=== PATIENT | female | born 1980 | race Caucasian/White ===

== ENCOUNTER 2016-10-07 16:49 | Emergency (ER) | payer OTHER ==
[2016-10-07] MEDS ORDERED: CEPHALEXIN 500 MG CAPSULE ONE (17:49)
[2016-10-07] MEDS ORDERED: SULFAMETHOXAZOLE 800 MG/TRIMETHOPRIM 160 MG TABLET ONE (17:49)
[2016-10-07] MEDS ORDERED: FLUCONAZOLE 150 MG TABLET ONE (17:56)
== END 2016-10-07 18:12 | disposition home or self-care (01) ==
LOC: ED 16:49
DX: L02.415 Cutaneous abscess of right lower limb (principal); E11.9 Type 2 diabetes mellitus without complications; Z79.899 Other long term (current) drug therapy
CPT/HCPCS: 87070; 87186; 87077; 99283 ×2; 10060 ×2; A9270 ×3

== ENCOUNTER 2016-12-05 21:26 | Emergency (ER) | payer OTHER ==
[2016-12-05 22:23] LABS: SPECIFIC GRAVITY 1.015 (1.001-1.030); URINE APPEARANCE SL CLOUDY; URINE BILIRUBIN NEGATIVE (NEGATIVE); URINE BLOOD NEGATIVE (NEGATIVE); URINE COLOR YELLOW; URINE GLUCOSE (UA) 3+ (NEGATIVE); URINE LEUKOCYTE ESTERASE NEGATIVE (NEGATIVE); URINE NITRITE NEGATIVE (NEGATIVE); URINE PROTEIN NEGATIVE (NEGATIVE); URINE UROBILINOGEN NORMAL (0-1 mg/dl)
[2016-12-05 22:28] LABS: HCG,QUALITATIVE URINE NEGATIVE
[2016-12-05 22:41] LABS: URINE AMORPHOUS SEDIMENT FEW; URINE BACTERIA 1+; URINE RBC 0 /hpf; URINE WBC 0-2 /hpf
[2016-12-05 23:03] LABS: BASO # 0.1 K/mm3 (0.0-0.2); BASO % 0.6 % (0.2-1.0); EOS # 0.3 (0.0-0.5); EOS % 2.4 % (0.9-2.9); HEMATOCRIT 41.6 % (37.0-47.0); HEMOGLOBIN 14.3 gm/l (12.0-16.0); IMM NEUT% 0.4 % (0-1); LYMPH # 3.7 (1.0-4.8); MEAN CELL VOLUME 87.4 fl (81.0-99.0); MEAN CORPUSCULAR HGB CONC 34.4 g/dl (33.0-37.0); MEAN PLATELET VOLUME 9.7 fl (7.4-10.4); MONO # 0.5 (0.0-0.8); MONO % 4.9 % (4-12); NEUT % 56.7 % (43-75); PLATELET COUNT 265 K/mm3 (130-400); RED CELL DISTRIBUTION WIDTH 12.3 % (11.5-14.5)
[2016-12-05] MEDS ORDERED: HYDROCODONE/ACETAMINOPHEN 5/325MG TABLET ONE (23:07)
[2016-12-05] MEDS ORDERED: METOCLOPRAMIDE HCL 5 MG/ML 2ML VIAL ONE (23:07)
[2016-12-06 00:17] LABS: ALB/GLOB RATIO 1.5 (>1.0); ALBUMIN 4.4 gm/dL (3.5-5.7); CALCIUM 10.1 mg/dL (8.6-10.3)
[2016-12-06] MEDS ORDERED: INSULIN REGULAR HUMAN (DOSE) 100 UNITS/1 ML ONE (00:41)
--- NOTE | 2016-12-06 08:06 | CT ---
ABD/PELVIS W/O CON: 12/05/2016 11:07 PM INDICATION: Right flank pain. COMPARISON: 11/08/2009 TECHNIQUE: Contiguous 3 mm transaxial images from a [employer] [address] scanner were obtained from the lung bases through the pubic symphysis without oral or intravenous contrast. Multiplanar images were created at the CT scanner. CT DI: 13.6 DLP: 697.9 FINDINGS: Lung base: No abnormality is seen at the lung bases. There is no pericardial effusion. This examination is limited for the evaluation of solid organs and vascular structures due to the lack of intravenous contrast which is standard for urinary calculus assessment CT. Liver: Normal. Gallbladder: Normal Spleen: Normal. Pancreas: Normal. Adrenal Glands: Normal. Right kidney & ureter: - Calculi - nonobstructive calculus is again noted at the right lower pole measuring approximately 3 mm on axial image 66. . - Ureter Calculi - No. - Obstruction / hydronephrosis - No Left kidney & ureter: - Calculi - No . - Ureter Calculi- No . - Obstruction / hydronephrosis - No The unopacified stomach and bowel is within normal limits. Appendix is not visualized though secondary signs of appendicitis are not seen. Diverticulosis without diverticulitis or abscess formation. No lymphadenopathy is seen in the abdomen or pelvis No free fluid in the abdomen or pelvis. Scarred and mildly atrophic appearance of left kidney is again noted with cortical calcification along the inferior pole. Compensatory hypertrophy of the right kidney. Tiny fat-containing umbilical hernia, with hernia neck measuring approximately 4 mm on axial image 77. Uterus and adnexa are unremarkable. Urinary bladder: -Bladder Calculi- No . - Bladder is distended adequately. - Wall is thin. Bone windows- No lytic or sclerotic lesions. Spine maintains sagittal alignment. IMPRESSION: 1. Nonobstructive right lower pole calculus. Cortical calcification is noted on the left at the left lower pole. No evidence of obstruction. 2. Non-contrast evaluation of the abdomen and pelvis is otherwise notable for incidental findings as above. Preliminary report was provided by [facility] at approximately 0013 hours on 12/06/2016.
== END 2016-12-06 01:49 | disposition home or self-care (01) ==
LOC: ED 21:26
DX: N20.0 Calculus of kidney (principal); E11.9 Type 2 diabetes mellitus without complications; Z87.442 Personal history of urinary calculi; Z79.4 Long term (current) use of insulin
CPT/HCPCS: 81025; 85025; 80053; 81001; 74176; 99284 ×2; 96372; 96374; 82962; J2765; A9270; J1815